=== PATIENT | female | born 1980 | race Caucasian/White ===

== ENCOUNTER → 2016-08-09 | Outpatient (REF) | payer MEDICAID | LOC: M LAB REF 10:41 | PROVIDERS: ATTEND Physician Assistant | DX: J02.9 Acute pharyngitis, unspecified (principal) ==

== ENCOUNTER → 2020-03-06 | Outpatient (CLI) | payer SELFPAY | LOC: M LABSMTC 08:26 | PROVIDERS: ATTEND Pediatrics | DX: Z11.59 Encounter for screening for other viral diseases (principal) ==

== ENCOUNTER 2024-01-20 05:51 | Emergency (ER) | payer OTHER, SELFPAY ==
[~2024-01-20] VITALS: Ht 167.6 cm; Wt 97.4 kg
[2024-01-20 09:20] LABS: BASO % 0.2 % (0.0-1.0); HEMATOCRIT 41.4 % (36.0-47.0); HEMOGLOBIN 14.4 g/dl (12.0-15.5); LYMPH % 15.3 % (24.0-44.0); MEAN CORPUSCULAR HEMOGLOBIN 29.9 pg (27.0-33.0); MEAN CORPUSCULAR HGB CONC 34.8 g/dl (32.0-36.5); MEAN CORPUSCULAR VOLUME 86.1 fl (80.0-96.0); MONO # 0.2 10^3/uL (0.0-0.8); MONO % 3.2 % (2.0-8.0); NEUTROPHILS # 5.3 10^3/uL (1.5-8.5); PLATELET COUNT, AUTOMATED 228 10^3/uL (150-450); RED BLOOD COUNT 4.81 10^6/uL (4.00-5.40); WHITE BLOOD COUNT 6.6 10^3/uL (4.0-10.0)
[2024-01-20 09:30] LABS: HCG, SERUM QUALITATIVE NEGATIVE (NEGATIVE)
[2024-01-20 09:55] LABS: BLOOD UREA NITROGEN 9 MG/DL (9-23); CALCIUM LEVEL 9.4 MG/DL (8.5-10.1); CARBON DIOXIDE LEVEL 19 MMOL/L (20-31); CHLORIDE LEVEL 109 MMOL/L (98-107); CREATININE FOR GFR 0.64 MG/DL (0.55-1.30); GLOMERULAR FILTRATION RATE > 60.0 (>58); GLUCOSE, FASTING 115 MG/DL (60-100); POTASSIUM SERUM 5.1 MMOL/L (3.5-5.1); SODIUM LEVEL 136 MMOL/L (136-145)
[2024-01-20] MEDS: GASTROGRAFIN SOLUTION 30ML PO SCH (10:58)
[2024-01-20] MEDS ORDERED: META28.32 PO (12:24)
[2024-01-20] MEDS ORDERED: ALL10TAB2 PO (12:24)
[2024-01-20] MEDS ORDERED: HOME MED LIST COMPLETE! XX SCH (12:25)
[2024-01-20] MEDS ORDERED: ISOVUE-370 76% 100ML VIAL As Ordered ONE (12:47)
[2024-01-20 15:14] VITALS: BP 125/67; TEMP 98.9; O2SAT 97
== END 2024-01-20 15:15 | disposition home or self-care (01) ==
LOC: M ED 05:51
DX: K58.9 Irritable bowel syndrome, unspecified (principal); T49.3X5A Adverse effect of emollients, demulcents and protectants, initial encounter; K76.89 Other specified diseases of liver; Z79.899 Other long term (current) drug therapy
CPT/HCPCS: 36415; 74021; 74177; 80047; 80048; 84703; 85025; 99284; Q9963; Q9967